=== PATIENT | male | born 1950 | race Caucasian/White ===

== ENCOUNTER 2020-07-02 11:05 | Outpatient (NON) | payer MEDICARE, SELFPAY ==
[2020-07-03 14:57] LABS: SARS-CoV-2 RNA PCR Positive
== END 2020-07-02 11:06 ==
LOC: ANHCOVIDDT 11:07
PROVIDERS: PCP Internal Medicine; Visit Provider Internal Medicine
DX: U07.1 COVID-19 (principal)
CPT/HCPCS: 87635; C9803; U0003

== ENCOUNTER 2022-05-28 14:34 | Outpatient (CLI) | payer MEDICARE, SELFPAY ==
--- NOTE | 2022-05-28 16:00 | WPDPFTINT ---
PFT Procedure Performed PFT Procedure Performed Spirometry with Pre/Post Bronchodilator Plethysmography (Lung Vol) Diffusing Cap (DLCO) Flow Vol Loop PFT Interpretation This is a pulmonary function test with pre and post-bronchodilator spirometry, plethysmography and diffusing capacity. The test was performed and results interpreted in accordance with the 2019 and 2005 ATS/ERS Task Force guidelines respectively using the Global Lung Function Initiative-2012 reference equations. Patient demonstrated good effort and cooperation. Reproducibility criteria were met. The quality of the pre bronchodilator spirometry maneuver was Grade B and post bronchodilator spirometry maneuver was Grade A. Findings: Spirometry: The contour the inspiratory and expiratory flow tracing are normal. The pre bronchodilator FVC is 3.56 L, 95% predicted. The pre bronchodilator FEV1 is 2.74 L, 96% predicted. The pre bronchodilator FEV1: FVC ratio 77%. The post bronchodilator FVC is 3.54 L, representing 1% decrease. The post bronchodilator FEV1 is 2.74 L, representing a no change. The post bronchodilator FEV1: FVC ratio 77%. Plethysmography: The total lung capacity is 6.51 L, 102% predicted. The functional residual capacity is 3.46 L, 102% predicted. The residual volume is 2.96 L, 127% predicted. Diffusing capacity: The diffusing capacity unadjusted for hemoglobin and carboxyhemoglobin is 19.7, 81% predicted. The diffusing capacity adjusted for alveolar volume is 3.53, 87% predicted. Impression: The spirometry is normal without evidence of an obstructive abnormality. There is no significant improvement after inhaling a single dose of albuterol. The lung volumes are normal. The diffusing capacity is normal. There are no prior studies for comparison
== END 2022-05-28 14:35 | disposition home or self-care (01) ==
LOC: ANHPFT 14:35
PROVIDERS: Visit Provider Internal Medicine Critical Care Medicine
DX: J45.990 Exercise induced bronchospasm (principal)
CPT/HCPCS: 94060; 94726; 94729

== ENCOUNTER → 2022-11-16 12:51 | Outpatient (CLI) | payer MEDICARE, SELFPAY ==
--- NOTE | ~2022-11-16 | XR_ITS ---
XR chest 2V DATE: 11/16/2022 13:12 INDICATION: Chronic obstructive pulmonary disease TECHNIQUE: 2 views COMPARISON: 05/06/2017 CT chest FINDINGS: Plate and screws are noted along the left clavicle. Surgical clips, left axillary region. Normal heart size. Aortic arch calcification. No hilar or mediastinal enlargement. No pulmonary infiltrate or consolidation, pleural effusion or pulmonary vascular congestion or pneumo thorax is detected. Degenerative spurring of the thoracic spine. IMPRESSION: No active cardiac pulmonary disease Reviewed, dictated and finalized at location L.
== END ==
PROVIDERS: PCP Internal Medicine Critical Care Medicine; Visit Provider Internal Medicine Critical Care Medicine
DX: J44.9 Chronic obstructive pulmonary disease, unspecified (principal)
CPT/HCPCS: 71046

== ENCOUNTER 2023-01-28 14:38 | Outpatient (CLI) | payer MEDICARE, SELFPAY ==
--- NOTE | ~2023-01-28 | DEXA_ITS ---
Bone Density Report Name: SOUMYA ZAPATA Age: 72 Sex: Male Ethnicity: White Date of : 1950 Indication: screening for osteoporosis; prior fracture; cancer; asthma or emphysema; postmenopausal Referring Provider: DARCY TAPIA Study: Bone densitometry was performed. Exam Date: January 28, 2023 Accession number: [id number] Bone Density: Region BMD T-score Z-score Classification AP Spine(L1-L4) 1.344 2.3 3.3 Normal Femoral Neck (Left) 0.884 -0.3 0.9 Normal Total Hip (Left) 1.149 0.8 1.5 Normal Femoral Neck (Right) 0.848 -0.6 0.7 Normal Total Hip (Right) 1.134 0.7 1.4 Normal Total Hip Mean 1.142 0.8 1.5 Normal World Health Organization criteria for BMD impression classify patients as: Normal (T-score at or above -1.0), Osteopenia (T-score between -1.0 and -2.5), or Osteoporosis (T-score at or below -2.5). 10-year Fracture Risk: FRAX not reported because: All T-scores for Spine Total, Hip Total, Femoral Neck at or above -1.0 Clinical Information Provided by Patient: Has had a low trauma fracture Has used the following medications: Vitamin D Has the following medical conditions: Asthma or Emphysema, Cancer Patient maximum height was 67.5 No regular weight bearing exercise Drinks caffeinated beverages Impression: The patient has normal bone mass. The patient has risk factors, including: previous fracture. Discussion: BONE DENSITY IS ABOVE THE MINIMUM DESIRABLE LEVEL AT ALL SKELETAL SITES TESTED. This patient?s bone mineral density is above the minimum desirable level (T-score -1.0 or better) at all sites measured. The patient should follow a healthful lifestyle (good nutrition with adequate calcium and vitamin D, and appropriate weight-bearing exercise). Follow-Up: Consider repeating this study in 5 years or sooner if there is some new clinical indication. Reported by: ASMITA on 01/28/2023 3:29:00 PM. Reviewed, dictated and finalized at location APaige PARMAR
== END 2023-01-28 14:39 | disposition home or self-care (01) ==
LOC: ANHIMG 15:01
PROVIDERS: PCP Nurse Practitioner; Visit Provider Nurse Practitioner
DX: Z13.820 Encounter for screening for osteoporosis (principal); Z79.899 Other long term (current) drug therapy; M81.0 Age-related osteoporosis without current pathological fracture
CPT/HCPCS: 77080

== ENCOUNTER 2023-02-23 13:23 | Outpatient (CLI) | payer MEDICARE, SELFPAY ==
--- NOTE | ~2023-02-23 | CT_ITS ---
EXAMINATION:CT chest high resolution wo sd DATE: 02/23/2023 13:47 INDICATION: Other specified interstitial pulmonary disease. TECHNIQUE: Computed tomography (CT) of the chest was performed without intravenous contrast. Automate d exposure control and iterative reconstruction technique were employed. The dose-length product (DLP ) was 471.98 mGy-cm. COMPARISON: Chest CT 04/26/2017 FINDINGS: There is mild emphysema. There is widespread peripheral septal thickening in the lungs. In some areas, there are associated mild groundglass opacities. No bronchiectasis or honeycombing. No pl eural effusion. The heart size is normal. There are coronary artery calcifications. No pericardial ef fusion. There is mild bilateral gynecomastia. There is plate and screw fixation of left clavicle. The re are old healed left rib fractures. There is mild thoracic spondylosis. IMPRESSION: 1. Stable diffuse lung disease, likely a combination of mild emphysema and mild chronic interstitial lung disease in a pattern of nonspecific interstitial pneumonia (NSIP) versus desquamative interstiti al pneumonia (DIP). Reviewed, dictated and finalized at location A. IMPRESSION: 1. Stable diffuse lung disease, likely a combination of mild emphysema and mild chronic interstitial lung disease in a pattern of nonspecific interstitial pne umonia (NSIP) versus desquamative interstitial pneumonia (DIP).
== END 2023-02-23 13:24 | disposition home or self-care (01) ==
PROVIDERS: PCP Nurse Practitioner; Visit Provider Internal Medicine Critical Care Medicine
DX: J84.89 Other specified interstitial pulmonary diseases (principal)
CPT/HCPCS: 71250

== ENCOUNTER 2023-10-13 00:27 | Day surgery (SDC) | payer MEDICARE, SELFPAY ==
[2023-09-29 14:02] VITALS: BMI 32.9
--- NOTE | 2023-09-29 14:20 | PC.NURSE ---
Report to the Outpatient Waiting Room, entrance under the green pavilion located off [facility], at time _0815_ on date _10/13/23_. Planned Procedure Time: _1015_. PACK A SMALL OVERNIGHT BAG AND LEAVE IN THE CAR Time changes happen often and if your time is changed the preop area will call you the afternoon before. - You and your visitor will be asked to self-screen and do not enter if you have any COVID symptoms. - A mask is optional within the hospital at this time. Patients may have clear liquids (water, carbonated beverages, clear teas, apple juice) until 3 hours prior to surgery (0715 AM) with a maximum of 20 ounces. - No food from midnight until time of surgery - Infants may have breast milk until 4 hours before surgery, formula 6 hours prior to surgery. - Children will be allowed to drink immediately following surgery. If applicable, please bring a bottle or sippy cup to assist with drinking. Juice, water, soda, and popsicles are readily available. For infants on formula, please bring formula the day of surgery. Pacifiers are allowed. Take the following medications with a SIP of water the morning of surgery: _INHALER_ DO NOT STOP ANY OF YOUR OTHER PRESCRIPTION MEDICATIONS PRIOR TO SURGERY ?EXCEPT THE FOLLOWING Medications to discontinue per ANESTHESIA - _MULTIVITAMIN, PROBIOTIC, & SUPPLEMENTS 3 DAYS PRIOR TO SURGERY Date to take last dose___10/09/23 Please no make-up, nail swedish, hairspray, perfume, deodorant, or body powder the day of surgery. No jewelry (including any body piercings) or valuables the day of surgery, leave them at home. Please take a shower or bath the night before, or the morning of, surgery with an antibacterial soap. Wear comfortable, loose fitting clothing. Children are encouraged to wear pajamas. - Jewelry must be removed prior to entering the operating room. Rings and piercings that are not removed may be cut off. - The hospital will not accept responsibility for valuables. - Please leave all valuables, including medications, at home the day of surgery. If you are going home after surgery, a licensed food mobile driver must drive you home. - NO public transportation without another adult if you receive anesthesia. - We recommend that an adult stay with you for 24 hours following discharge. - We also recommend that you do not drive, make important decision, drink alcoholic beverages, or take any drugs that were not prescribed by your health care provider for at least 24 hours after your discharge time. For Pediatric surgeries, we recommend two adults accompany the child home. Follow any additional instructions given to you from your surgeon. If you or anyone in your household have experienced Covid symptoms in the past week, please notify your surgeon or the nurse liaison at the phone number below for possible testing. Telephone instructions given to _PATIENT__and asked if any additional questions and then verbalized understanding. Patient advised to call surgeon office or pre surgery nurse liaison [phone] if any additional questions.
[2023-10-13] VITALS (14 sets, daily range): BP systolic 115–149; BP diastolic 63–88; PULSE 67–91; RESP 13–20; TEMP 36.2–36.9; O2SAT 95–99
--- NOTE | 2023-10-13 06:23 | WPDHPUPDATE1 ---
History and Physical Update Update Date/Time: 10/13/23 06:23 History and Physical has been reviewed, including an updated exam of the patient. There are NO changes in the patient's condition. Risks, benefits, and alternatives have been discussed and questions answered. Patient agrees to proceed with procedure.
[2023-10-13] MEDS: LACTATED RINGERS 1,000 ML 30 ML IV CONT (09:00)
--- NOTE | 2023-10-13 09:45 | WPDANESEPPF ---
Anes - Initial Pre Proc Eval Procedure: Operation Date: 10/13/23 10:15 Proposed Procedures p Trans Urethral Resection Prostate - John Gil MD Date/Time: 10/13/23 09:45 Surgeon: John Gil MD Pre Op Diagnosis: BPH Patient Data Age: 73 Gender: M Height: 1.7 m Weight: 97.5 kg Last Vital Signs Temp 36.9 C 10/13/23 09:00 Pulse 72 10/13/23 09:00 Resp 18 10/13/23 09:00 BP 134/69 10/13/23 09:00 Pulse Ox 97 10/13/23 09:00 O2 Del Method Room Air 10/13/23 09:00 Allergies Allergy/AdvReac Type Severity Reaction Status Date / Time interferon caterina (human leuk. Allergy Mild ischemic Verified 10/13/23 09:38 derive colitis Interferons Allergy Mild Unknown Verified 10/13/23 09:38 Home Medications Medication Instructions Recorded Confirmed Type cholecalciferol (vitamin D3) 125 5,000 unit PO DAILY 11/08/19 09/29/23 History mcg (5,000 unit) capsule omega-3 fatty acids 1,000 mg 2,000 mg PO DAILY 11/12/19 09/29/23 History capsule (Fish Oil Concentrate) garlic 300 mg capsule (Odorless 1,000 mg PO DAILY 06/23/20 09/29/23 History Garlic) glucosamine sulfate 500 mg tablet 500 mg PO BID 06/23/20 09/29/23 History (Glucosamine) multivitamin 1 tablet PO DAILY 06/23/20 10/13/23 History turmeric 400 mg capsule 800 mg PO DAILY 06/23/20 09/29/23 History psyllium husk 0.4 gram capsule 0.4 g PO DAILY 06/30/20 09/29/23 History (Fiber (psyllium husk)) tiotropium 2.5 mcg-olodaterol 2.5 2 puff inhalation DAILY #4 grams 11/30/22 09/29/23 Rx mcg/actuation mist for inhalation (Stiolto Respimat) tamsulosin 0.4 mg capsule 0.4 mg PO DAILY 02/01/23 09/29/23 History albuterol sulfate 90 mcg/actuation 2 inh inhalation Q4-6H PRN 02/18/23 09/29/23 Rx aerosol inhaler (Ventolin HFA) shortness of breath 90 days #8.5 grams pravastatin 40 mg tablet 40 mg PO DAILY #90 tabs 06/15/23 09/29/23 Rx valsartan 320 mg tablet (Diovan) 320 mg PO DAILY #90 tabs 08/03/23 09/29/23 Rx pantoprazole 20 mg tablet,delayed 20 mg PO QAM #90 tabs 08/30/23 09/29/23 Rx release fluoxetine 20 mg capsule See Rx Instructions .Route 09/26/23 09/29/23 Rx .COMPLEX #90 caps Probiotic 1 tab-cap DAILY 09/29/23 09/29/23 History finasteride 5 mg tablet 5 mg HS 09/29/23 09/29/23 History polyvinyl alcohol 1.4 % eye drops 2 drp BID 09/29/23 09/29/23 History potassium 99 mg tablet 99 mg DAILY 09/29/23 09/29/23 History Patient hx anesthesia problems: none Family hx anesthesia problems: none Results Review: All pre-operative results and documents have been reviewed as part of the pre-operative evaluation. [facility] Past Medical History Medical History [place] positive Asthma-COPD overlap syndrome Close exposure to COVID-19 virus COPD (chronic obstructive pulmonary disease) Depression Essential hypertension Fracture of left clavicle Generalized osteoarthritis of multiple sites GERD without esophagitis Hepatitis C antibody positive in blood IGT (impaired glucose tolerance) Mixed hyperlipidemia NSIP (nonspecific interstitial pneumonia) Obstructive sleep apnea On snf drug therapy REM behavioral disorder Family History Family History Father Diabetes mellitus Bone marrow disorder Mother Diabetes mellitus Dementia Heart disease Hypertension Father Diabetes mellitus Family history of diabetes mellitus in first degree relative Mother Diabetes mellitus Hypertension Family history of cardiovascular disease Family history of dementia Family history of diabetes mellitus in first degree relative Family history of heart disease in male family member before age 55 Sibling Hypertension Family history of hepatitis Family history of diabetes mellitus in first degree relative Other Cerebrovascular accident Family history of alcoholism Family history of allergic disorder Family h
[2023-10-13] MEDS: ceFAZolin 2 GM/D5W 50 ML 2 GM/50 ML BAG IVPB (10:03)
[2023-10-13] MEDS: LIDOCAINE HCL 2% GEL UROJET 10 ML PKG MUCOUS MEM (10:26)
--- NOTE | 2023-10-13 10:55 | P.OP_ITS ---
Procedure Note - Detailed Date of Procedure 10/13/23 Pre-op Diagnosis BPH Post-op Diagnosis Same Procedure Performed TURP Surgeon John Gil MD Anesthesia General Description of Procedure The patient was brought to the operative suite where he is prepped and draped in routine sterile fashion while in the dorsal lithotomy position after the uneventful induction of a general LMA anesthetic. A 26 [place] resectoscope sheath was placed into his bladder. He had no urethral strictures. The patient had trilobar hyperplasia with a small median lobe. The bladder itself was endoscopically normal, showing no mucosal hyperemia, intravesical neoplasm or foreign bodies. There was a single, orthotopic ureteral orifice bilaterally. These orifices were identified and preserved throughout the remainder of the procedure. Attention was first turned to resection of the median lobe. This resection was undertaken from the bladder neck to the verumontanum and carried out until the transverse fibers of the bladder neck were identified. The left lateral lobe was then resected starting at the 6 o'clock position, working counter clockwise to the 12 o'clock position. Again, resection was carried out from the bladder neck to the verumontanum until the capsular fibers of the prostate were identified. The right lateral lobe was resected in a similar fashion starting at the 6 o'clock position working clockwise to the 12 o'clock position and carried out until the capsular fibers of the prostate were identified. Apical tissue was then circumferentially resected. All chips were evacuated from the bladder using an Tripvi evacuator. Hemostasis was obtained with electric cautery. The ureteral orifices were again inspected and found to be without injury. Estimated blood loss throughout this procedure was 50cc. The patient was taken to recovery room having tolerated this well. Drains Yes Pathology Yes Complications No immediate complications
--- NOTE | 2023-10-13 13:07 | ADMGEN ---
This patient, Jl Dollgorge Hector., was admitted to 3 Med Surg Room 320-01 . Patient/family oriented to hospital policies and general routines including ID bracelet, bed and alarms, visiting hours, pain management, procedures, bathroom and other care routines, personal items, smoking policy, room service/diet, and visiting hours. Information on how to activate the Rapid Response Team has been discussed. Patient/Family are encouraged to report perceived risks to care and to ask questions if they do not understand what they are told or what they should do.
[2023-10-13] MEDS: DOCUSATE SODIUM 100 MG CAPSULE PO (17:10)
[2023-10-13] MEDS: ceFAZolin 1 GM/NS 50 ML 1 GM/50 ML BAG IVPB (17:12)
[2023-10-14] VITALS: BP 132/72; PULSE 98; RESP 16; TEMP 36.2; O2SAT 96
[2023-10-14] MEDS: WATER FOR IRRIGATION, STERILE 1,000 ML BOTTLE 1000 ML (00:27)
[2023-10-14] MEDS: ceFAZolin 1 GM/NS 50 ML 1 GM/50 ML BAG IVPB (02:21)
[2023-10-14 04:00] VITALS: BP 120/66; PULSE 79; RESP 18; TEMP 35.8; O2SAT 98
[2023-10-14 06:20] LABS: Hematocrit 38.5 % (42.0-52.0); Hemoglobin 12.8 g/dL (14.0-18.0)
[2023-10-14 06:33] LABS: Anion Gap 7 mmol/L (8-16); Blood Urea Nitrogen 19 mg/dL (9-20); Calcium 9.5 mg/dL (8.4-10.2); Carbon Dioxide 26 mmol/L (22-30); Chloride 103 mmol/L (98-107); Estimated CRCL calculation 64 ml/min; Estimated Glomerular Filt Rate > 60; Glucose 170 mg/dL (65-110); Sodium 136 mmol/L (137-145)
--- NOTE | 2023-10-14 06:52 | WPDUROPN2 ---
Progress Note: A&P Assessment and Plan (1) BPH loc w urin obs/LUTS: Code(s): N40.1 - Benign prostatic hyperplasia with lower urinary tract symptoms Status: Acute Assessment and Plan: Patient doing well POD#1 s/p TURP Catheter out for voiding trial Subjective Subjective Date/Time Seen: 10/14/23 06:52 Interval history: Comfortable, no complaints, urine clear Review of Systems Cardiovascular: Cardiovascular: Denies chest pain, Denies lightheadedness, Denies palpitations and Denies dyspnea Respiratory: Respiratory: Denies dyspnea Gastrointestinal: Gastrointestinal: Denies diarrhea, Denies nausea and Denies vomiting Genitourinary: Genitourinary: Denies hematuria and Denies dysuria Endocrine: Endocrine: Denies palpitations Exam Const: General: no acute distress Resp: Effort & Inspection: normal respiratory effort GI: Inspection: non-distended GI Palp: No abdominal tenderness and No Guarding due to palpation present (GI) Auscultation: normal bowel sounds Urinary Catheter: Urinary Catheter: patent and draining and urine clear Objective Data Vital Signs Vital Signs: Vital Signs - 24 hr 10/13/23 09:00 10/13/23 10:57 10/13/23 11:00 Temperature 98.4 F 97.2 F L Pulse Rate 72 68 74 Respiratory Rate 18 13 13 Blood Pressure 134/69 115/71 129/78 Pulse Oximetry 97 98 99 Oxygen Delivery Room Air Simple Face Mask Simple Face Mask Oxygen Flow Rate 10 10 10/13/23 11:15 10/13/23 11:10 10/13/23 11:30 Temperature Pulse Rate 79 80 Respiratory Rate 14 20 Blood Pressure 149/75 H 138/81 Pulse Oximetry 98 99 Oxygen Delivery Room Air Room Air Room Air Oxygen Flow Rate 10/13/23 11:45 10/13/23 12:00 10/13/23 12:15 Temperature Pulse Rate 77 82 77 Respiratory Rate 20 20 15 Blood Pressure 130/64 138/85 148/88 H Pulse Oximetry 99 99 95 Oxygen Delivery Room Air Room Air Room Air Oxygen Flow Rate 10/13/23 12:38 10/13/23 12:40 10/13/23 13:10 Temperature 97.7 F 98.0 F Pulse Rate 67 77 Respiratory Rate 20 20 Blood Pressure 128/68 149/75 H Pulse Oximetry 98 98 Oxygen Delivery Room Air Oxygen Flow Rate 10/13/23 14:00 10/13/23 18:10 10/13/23 20:00 Temperature 97.7 F 98.0 F Pulse Rate 78 91 Respiratory Rate 20 20 Blood Pressure 126/67 138/66 Pulse Oximetry 97 95 Oxygen Delivery Room Air Oxygen Flow Rate 10/13/23 20:00 10/14/23 00:00 10/13/23 22:45 Temperature 97.9 F 97.1 F L Pulse Rate 80 98 Respiratory Rate 16 16 15 Blood Pressure 122/63 132/72 Pulse Oximetry 96 96 95 Oxygen Delivery Room Air Oxygen Flow Rate 10/14/23 04:00 Temperature 96.4 F L Pulse Rate 79 Respiratory Rate 18 Blood Pressure 120/66 Pulse Oximetry 98 Oxygen Delivery Oxygen Flow Rate Intake/Output Intake/Output: Intake & Output 10/11/23 10/12/23 10/13/23 10/14/23 23:59 23:59 23:59 23:59 Intake Total 1610 522 Output Total 2850 850 Balance -1240 -328 Meds/Results Medications: Active Medications Generic Name Dose Route Start Last Admin Trade Name Freq PRN Reason Stop Dose Admin Hydrocodone Bitart/Acetaminophen 1 tab 10/13/23 12:25 Hydrocodone/Acetaminophen (*Crx) 5-325 Mg Tablet PO Q4H PRN Pain Rated 1-6 Cephalexin HCl 500 mg 10/14/23 09:00 Cephalexin 500 Mg Capsule PO QID ZHOU Docusate Sodium 100 mg 10/13/23 17:00 10/13/23 17:10 Docusate Sodium 100 Mg Capsule PO 100 mg BID ZHOU Administration Fentanyl Citrate 25 mcg 10/13/23 09:47 Fentanyl Citrate Inj (*Crx) 100 Mcg/2 Ml Vial IV PUSH Q2M PRN Pain Hyoscyamine 0.125 mg 10/13/23 12:25 Hyoscyamine Sulfate 0.125 Mg Tablet SUBLINGUAL Q6H PRN Bladder Spasm Naloxone HCl 0.1 mg 10/13/23 12:25 Naloxone Hcl 0.4 Mg/Ml Vial IV PUSH Q2M PRN Opiate Reversal Ondansetron HCl 4 mg 10/13/23 09:47 Ondansetron Inj 4 Mg/2 Ml Vial IV PUSH ONCE PRN Nausea Ondansetron HCl 4 mg 10/13/23 12
--- NOTE | 2023-10-14 07:24 | WPDANESPN ---
Anes - Prog Note Post-Op Date/Time: 10/14/23 07:24 Cardiovascular status: normal Respiratory status: normal Airway patency: baseline Mental status: baseline Post-Op hydration status: normal Vital Signs: Last Vital Signs Temp 96.4 F L 10/14/23 04:00 Pulse 79 10/14/23 04:00 Resp 18 10/14/23 04:00 BP 120/66 10/14/23 04:00 Pulse Ox 98 10/14/23 04:00 O2 Del Method Room Air 10/13/23 22:45 O2 Flow Rate 10 10/13/23 11:00 Pain Score (VAS): 0 I/O: Intake & Output 10/13/23 10/13/23 10/14/23 15:59 23:59 07:59 Intake Total 830 780 522 Output Total 1150 1700 850 Balance -320 -920 -328 Laboratory Tests 10/14/23 05:55 10/14/23 05:55 10/14/23 05:55 Hgb 12.8 L Hct 38.5 L Sodium 136 L Potassium 4.0 Chloride 103 Carbon Dioxide 26 Anion Gap 7 L BUN 19 Creatinine 1.00 Estim Creat Clear Calc 64 Estimated GFR > 60 Glucose 170 H Calcium 9.5 Post-procedural complaints: none Patient Feedback: Patient satisfied with anesthetic care.
[2023-10-14] MEDS: CEPHALEXIN 500 MG CAPSULE PO ×2 (08:14→12:37)
[2023-10-14] MEDS: DOCUSATE SODIUM 100 MG CAPSULE PO (08:14)
--- NOTE | 2023-10-14 14:17 | PM.DS ---
DS: Admitting Diagnosis Discharge Date 10/14/23 Admitting Diagnosis BPH DS: Summary Hospital Course Hospital Course: This patient with longstanding prostatism refractory for medical management was admitted on the morning of his planned TURP. The procedure was undertaken on that same day in an uneventful fashion. His post-operative course was, likewise, uneventful. On the evening of the procedure he was tolerating a diet. On POD#1 his urine was clear on CBI. The urine remained clear and, therefore, the catheter was removed late morning. The patient was observed for several hours, until he demonstrated he could void effectively without significant hematuria. He was discharged with careful instruction on limiting physical activity x2 weeks and plans to f/ in 2-3 weeks. At discharge he was comfortable and tolerating a diet. Time Spent with Patient Time attestation: Total time spent providing and/or coordinating discharge services: DS: Data Data Completed and Pending Completed studies during hospitalization: Pending at discharge 10/13/23 10:40 Surgical [PTH] Routine Labs on day of discharge: Labs from last 24 hours 10/14/23 05:55 Hgb 12.8 L Hct 38.5 L Sodium 136 L Potassium 4.0 Chloride 103 Carbon Dioxide 26 Anion Gap 7 L BUN 19 Creatinine 1.00 Estim Creat Clear Calc 64 Estimated GFR > 60 Glucose 170 H Calcium 9.5 Discharge Plan Discharge Patient Disposition: Home, Self-Care Discharge Instructions: 1) Activity: No lifting/straining >15lbs. x2 weeks. 2) Diet: Resume normal pre-admission diet. 3) Follow-up: 2-3 weeks / call office for appointment ([phone]). Stand Alone Forms: General Discharge Instructions Discharge Medications: New cephalexin 500 mg capsule 500 mg PO Q8H Qty: 9 0RF docusate sodium [Colace] 100 mg capsule 100 mg PO DAILY Qty: 20 0RF Continued glucosamine sulfate [Glucosamine] 500 mg tablet 500 mg PO BID Rx Instructions: administer with meals multivitamin Tablet 1 tablet PO DAILY Odorless Garlic 300 mg capsule 1,000 mg PO DAILY turmeric 400 mg capsule 800 mg PO DAILY cholecalciferol (vitamin D3) 125 mcg (5,000 unit) capsule 5,000 unit PO DAILY psyllium husk [Fiber (psyllium husk)] 0.4 gram capsule 0.4 g PO DAILY pravastatin 40 mg tablet 40 mg PO DAILY Qty: 90 1RF polyvinyl alcohol 1.4 % Drops 2 drp BID Rx Instructions: EACH EYE potassium 99 mg Tablet 99 mg DAILY Probiotic 1 tab-cap DAILY Stiolto Respimat 2.5-2.5 mcg/actuation mist 2 puff inhalation DAILY Qty: 4 5RF albuterol sulfate [Ventolin HFA] 90 mcg/actuation HFA aerosol inhaler 2 inh inhalation Q4-6H PRN (Reason: shortness of breath) 90 Days Qty: 8.5 3RF valsartan [Diovan] 320 mg tablet 320 mg PO DAILY Qty: 90 1RF pantoprazole 20 mg tablet,delayed release (DR/EC) 20 mg PO QAM Qty: 90 1RF fluoxetine 20 mg capsule See Rx Instructions .ROUTE .COMPLEX Qty: 90 1RF Dose Instruction: TAKE 1 CAPSULE BY MOUTH DAILY Rx Instructions: TAKE 1 CAPSULE BY MOUTH DAILY-@ HS Held omega-3 fatty acids [Fish Oil Concentrate] 1,000 mg capsule 2,000 mg PO DAILY Discontinued tamsulosin 0.4 mg capsule 0.4 mg PO DAILY finasteride 5 mg tablet 5 mg HS
== END 2023-10-14 12:37 | disposition home or self-care (01) ==
LOC: ANHSURGERY 08:06 → ANH3MEDSUR 12:28
PROVIDERS: PCP Nurse Practitioner; Visit Provider Urology
PROC: 0VT08ZZ Resection of Prostate, Via Natural or Artificial Opening Endoscopic (ICD-10-PCS; CPT 52601; principal; 2023-10-13 10:15)
DX: N40.1 Benign prostatic hyperplasia with lower urinary tract symptoms (principal); J44.9 Chronic obstructive pulmonary disease, unspecified; I10 Essential (primary) hypertension; E78.2 Mixed hyperlipidemia; K21.9 Gastro-esophageal reflux disease without esophagitis; F32.A Depression, unspecified; G47.33 Obstructive sleep apnea (adult) (pediatric); Z87.891 Personal history of nicotine dependence; F10.21 Alcohol dependence, in remission; E66.9 Obesity, unspecified; Z68.33 Body mass index [BMI] 33.0-33.9, adult; F19.21 Other psychoactive substance dependence, in remission; Z79.51 Long term (current) use of inhaled steroids
CPT/HCPCS: 52601; 36415; 80048; 85014; 85018; 88305; A9270; C1757; J0690; J1100; J2405; J2704; J7120